=== PATIENT | male | born 1950 | race Caucasian/White ===

== ENCOUNTER → 2017-06-09 | Outpatient (CLI) | payer OTHER, MEDICARE ==
[~2017-06-09] MED LIST: AMLO1TAB84 PO; GLUC500T4 PO; HYDR12.57 PO; OMEP40CA2 PO; SACC1CAP3 PO; VITA100T54 PO; VITATAB56 PO
[2017-06-09 09:13] LABS: BILIRUBIN, URINE NEG (NEG); BLOOD, URINE NEG (NEG); GLUCOSE,URINE NEG (NEG); KETONE, URINE NEG (NEG); MUCUS URINE FEW /lpf (OCC); NITRITE,URINE NEG (NEG); PH, URINE 6.5 (5.0-8.5); URINE COLOR YELLOW (YELLW/STRAW); URINE LEUKOCYTE ESTERASE NEG (NEG)
[2017-06-09 09:15] LABS: AUTOMATED NEUTROPHIL # 5.4 TH/MM3 (1.8-7.7); BASOPHIL % 0.3 % (0.0-2.0); EOSINOPHIL # 0.2 TH/MM3 (0-0.4); EOSINOPHIL % 2.9 % (0.0-4.0); HEMATOCRIT 46.1 % (39.0-51.0); HEMOGLOBIN 15.7 GM/DL (13.0-17.0); LYMPHOCYTE # 1.4 TH/MM3 (1.0-4.8); MEAN CELL VOLUME 87.1 FL (80.0-100.0); MEAN CORPUSCULAR HEMOGLOBIN 29.7 PG (27.0-34.0); MEAN CORPUSCULAR HGB CONC 34.1 % (32.0-36.0); MONO % 7.5 % (0.0-8.0); MONOCYTE # 0.6 TH/MM3 (0-0.9); NEUT % 71.3 % (16.0-70.0); PLATELET COUNT 202 TH/MM3 (150-450); RED CELL DISTRIBUTION WIDTH 14.5 % (11.6-17.2); WHITE BLOOD COUNT 7.6 TH/MM3 (4.0-11.0)
[2017-06-09 09:25] LABS: INTERNATIONAL NORMALIZED RATIO 1.1 RATIO; PROTHROMBIN TIME - PATIENT 10.7 SEC (9.8-11.6)
[2017-06-09 09:42] LABS: CALCIUM 9.1 MG/DL (8.5-10.1); CHLORIDE 104 MEQ/L (98-107); SODIUM (NA) 141 MEQ/L (136-145)
[2017-06-09 09:44] LABS: ALBUMIN 3.9 GM/DL (3.4-5.0); AST (GOT) 24 U/L (15-37); BICARBONATE 30.3 MEQ/L (21.0-32.0); BLOOD UREA NITROGEN 13 MG/DL (7-18); CREATININE 1.12 MG/DL (0.60-1.30); GLOMERULAR FILTRATION RATE 66 ML/MIN (>89); GLUCOSE,FASTING 101 MG/DL (74-99)
[2017-06-09 09:49] LABS: ALKALINE PHOSPHATASE 95 U/L (45-117); ALT (GPT) 33 U/L (12-78); TOTAL BILIRUBIN ADULT 1.4 MG/DL (0.2-1.0); TOTAL PROTEIN 7.5 GM/DL (6.4-8.2)
== END ==
LOC: CPRE 08:08
PROVIDERS: ATTEND Surgery
DX: Z01.810 Encounter for preprocedural cardiovascular examination (principal); Z01.812 Encounter for preprocedural laboratory examination; Z01.818 Encounter for other preprocedural examination; M79.609 Pain in unspecified limb
CPT/HCPCS: 36415; 80053; 81001; 85025; 85610; 85730

== ENCOUNTER 2017-06-16 10:50 | Observation (INO) | payer OTHER, MEDICARE ==
--- NOTE | 2017-06-10 14:11 | MH ---
cc: Steffi Stephenson MD DATE OF ADMISSION: 06/16/2017 DATE OF ADMISSION FOR SURGERY: 06/16/2017 ADMITTING DIAGNOSIS: Osteoarthritic degeneration of the right knee, now being admitted for right total knee arthroplasty. HISTORY OF PRESENT ILLNESS: This pleasant 66-year-old male is being admitted today for right total knee arthroplasty due to severe painful osteoarthritic degeneration of the right knee. PAST MEDICAL HISTORY: The patient has a history of arthritis and hypertension. MEDICATIONS: Currently takes amlodipine, atorvastatin, hydrochlorothiazide, Nexium and Vyvanse. PAST SURGICAL HISTORY: Includes surgical correction of a patellar fracture, right knee and arthroscopy, right knee. REVIEW OF SYSTEMS: Noncontributory. FAMILY HISTORY: Noncontributory. SOCIAL HISTORY: The patient does not smoke, drinks alcohol occasionally. ALLERGIES: HE IS ALLERGIC TO CODEINE, BUT NOT HYDROCODONE OR OXYCODONE. PHYSICAL EXAMINATION: GENERAL: We find a 66-year-old male, well-developed, well-nourished, oriented x 3, complaining of pain in his right knee. VITAL SIGNS: Blood pressure 130/86, pulse 90 and regular, respirations 16, temperature 98.2, pulse oximetry 97% on room air. HEENT: Eyes PERRLA, EOMI. Ears, nose, mouth clear. NECK: Supple. LUNGS: Clear. HEART: Regular rate. ABDOMEN: Soft, positive bowel sounds, nontender. EXTREMITIES: Reveal right knee to be tender with crepitance on range of motion. He lacks 5 degrees short of full extension. He has good flexion. Neurovascularly intact. IMPRESSION: Osteoarthritic degeneration of the right knee. PLAN: Admission for right total knee arthroplasty today. The patient understands the procedure well and risks involved and was given a prescription for postoperative pain and anticoagulation control in the office and plans on going home after the surgical stay in the hospital. MD SAQIB Ewing/CHON , 01:22 PM , 02:09 PM
[~2017-06-16] VITALS: Ht 180.3 cm; Wt 94.0 kg
[~2017-06-16 10:50] MED LIST changes: -SACC1CAP3 PO
[2017-06-16] MEDS ORDERED: CHLORHEXIDINE GLUCONATE 2 % 1 PACK (2 CLOTHS) TOPICAL PRN (12:00)
[2017-06-16] MEDS ORDERED: METOPROLOL TARTRATE 25 MG TAB PO PRN (12:00)
[2017-06-16] MEDS ORDERED: PROPOFOL 200 MG/20 ML AMP IV ONE (12:00)
[2017-06-16] MEDS ORDERED: LACTATED RINGER'S 1000 ML IV PRN (12:00)
[2017-06-16] MEDS ORDERED: POVIDONE IODINE 5% (ANTISEPSIS KIT) 4 APPLICATIONS EACH NARE PRN (12:00)
[2017-06-16] MEDS ORDERED: SODIUM CHLORID 0.9% 500 ML IV PRN (12:00)
[2017-06-16] MEDS ORDERED: INSULIN HUMAN REGULAR 1,000 UNITS/10 ML VIAL SQ PRN (12:00)
[2017-06-16] MEDS ORDERED: NALOXONE HCL 0.4 MG/ML AMP IV PUSH PRN (12:30)
[2017-06-16] MEDS ORDERED: Post-op Orders (for Pharmacy) XX ONE (12:30)
[2017-06-16] MEDS ORDERED: diphenhydrAMINE HCL 50 MG/ML VIAL IV PUSH PRN (12:30)
[2017-06-16] MEDS ORDERED: ONDANSETRON HCL 4 MG/2 ML VIAL IVP PRN (12:30)
[2017-06-16] MEDS ORDERED: ACETAMINOPHEN 325 MG TAB PO PRN (12:30)
[2017-06-16] MEDS ORDERED: TRANEXAMIC ACID INJ 0 MG in SODIUM CHLORIDE 0.9% INJ 100 ML IV SCH (12:30)
[2017-06-16] MEDS ORDERED: TEMAZEPAM 15 MG CAP PO PRN (12:30)
[2017-06-16] MEDS ORDERED: MORPHINE SULFATE 4 MG/ML INJ IV PUSH PRN (12:30)
--- NOTE | 2017-06-16 12:35 | HHI.FF ---
Face to Face Verification Diagnosis: (1) Status post total right knee replacement Physical Therapy Gait training Knee: Total knee, Protocol: Right, Gait training, Full weight bearing Canvas Knee Splint: When in bed & 2 pillows btw thighs Nursing RN: 3 days/week x 2 weeks I have seen patient David Parnell on 06/16/17. My clinical findings support the need for the requested home health care services because: Limited ability to care for self High risk of falls I certify that my clinical findings support that this patient is homebound because: Unsteady gait/balance Steffi Stephenson MD Jun 16, 2017 12:35
[2017-06-16] MEDS ORDERED: CPMMACHINE (12:37)
[2017-06-16] MEDS ORDERED: ADJUSTABLE COMM1 MIS (12:37)
[2017-06-16] MEDS ORDERED: WALKER WHEELS/F1 MIS (12:37)
[2017-06-16] MEDS ORDERED: BUPIVACAINE LIPOSOME PF 1.3% 20 ML VIAL ONE (12:49)
[2017-06-16] MEDS ORDERED: MIDAZOLAM HCL 2 MG/2 ML VIAL ONE ×2 (12:50→16:19)
[2017-06-16] MEDS ORDERED: SACC1CAP3 PO (12:52)
[2017-06-16] MEDS ORDERED: ceFAZolin 2 GM PREMIX 0 ML ONE (13:03)
[2017-06-16] MEDS ORDERED: ceFAZolin INJ 1,000 MG VIAL ONE (13:04)
[2017-06-16] MEDS ORDERED: VANCOMYCIN 1 GM/200 ML INJ 200 ML IV ONE (13:12)
[2017-06-16] MEDS ORDERED: ceFAZolin 2 GM PREMIX 50 ML ONE (13:12)
[2017-06-16] MEDS ORDERED: DEXAMETHASONE SOD PHOS 20 MG/5 ML VIAL ONE (13:12)
[2017-06-16 13:15] VITALS: PULSE 79
[2017-06-16] MEDS ORDERED: EPINEPHrine HCL PF/SF (1:1000) 1 MG/ML AMP I-OCULAR ONE (13:24)
[2017-06-16] MEDS ORDERED: BUPIVACAINE PF 0.75% DEX-WATER INJ 2 ML AMP ONE (13:25)
[2017-06-16] MEDS ORDERED: VANCOMYCIN 1 GM/200 ML PREMIX IV SCH (13:30)
[2017-06-16] MEDS ORDERED: CHLORHEXIDINE GLUCONATE 4% SOLN 120 ML BTL TOPICAL SCH (13:30)
[2017-06-16] MEDS ORDERED: ceFAZolin 2 GM PREMIX 50 ML IV SCH (13:30)
[2017-06-16] MEDS ORDERED: TRANEXAMIC ACID INJ 940 MG in SODIUM CHLORIDE 0.9% INJ 100 ML IV SCH ×2 (13:30→16:30)
[2017-06-16] MEDS ORDERED: BUPIVACAINE 0.25% P-ARTICULR SCH (13:45)
[2017-06-16] MEDS ORDERED: NS P-ARTICULR SCH (13:45)
[2017-06-16] MEDS ORDERED: BUPIVACAINE LIPOSO 1.3% P-ARTICULR SCH (13:45)
[2017-06-16] MEDS ORDERED: DEXAMETHASONE SOD PHOS 20 MG/5 ML VIAL IV PUSH SCH (14:00)
[2017-06-16] MEDS ORDERED: TOBRAMYCIN 1200 MG VIAL (for ortho/sterile core) OTHER ONE (15:07)
[2017-06-16] MEDS ORDERED: PROPOFOL 200 MG/20 ML AMP ONE (15:32)
--- NOTE | 2017-06-16 16:13 | HHI.PR ---
Immediate Post Op Note Procedure Date: Jun 16, 2017 Pre Op Diagnosis: Osteoarthritic degeneration of the right knee Post Op Diagnosis: Osteoarthritic degeneration of the right knee Surgeon: Mayito Stephenson MD Direct Service Professional(s): Zenobia ROTHMAN Procedure: Right Total Knee Arthroplasty Complications: none Specimen(s) removed: none Estimated blood loss: 100 cc Anesthesia: Spinal Drains: None IVF Urinary Output (mLs): 0 (no German) Tourniquet time (min at mmHg) 51 mins at 300mmHg Patient to: PACU Patient Condition: Good Implant/Devices: SEE IMPLANT LOG (if applicable) Date/Time of Procedure: SEE SURGICAL CARE RECORD Zenobia Alonzo Jun 16, 2017 16:12
[2017-06-16] MEDS ORDERED: *MEPERIDINE 25 MG INJ VIAL PERIprocedural Use ONLY ONE (16:18)
[2017-06-16] MEDS: LACTATED RINGER'S 1000 ML INJ 1,000 ML IV SCH (16:32)
[2017-06-16] MEDS ORDERED: DO NOT ADM ANY ANTICOAGULANT DRUGS PRN (16:45)
[2017-06-16] MEDS ORDERED: *morphine SULFATE 4 MG/ML PERIprocedure ONLY ONE (16:49)
--- NOTE | 2017-06-16 16:51 | MP ---
cc: Steffi Stephenson MD DATE OF OPERATION: 06/16/2017 PREOPERATIVE DIAGNOSIS: Osteoarthritic degeneration, right knee. POSTOPERATIVE DIAGNOSIS: Osteoarthritic degeneration, right knee. PROCEDURE PERFORMED: Right total knee arthroplasty using Consensus components, size 4 femur, size 3 tibia, size 2 x 7.5 mm patella with size 14 Vital-Lite congruent insert and 2 batches of antibiotic-impregnated DePuy cement with tobramycin. ANESTHESIA: Spinal. SURGEON: Steffi Stephenson MD WEB MARKETING MANAGER: LORNA Jarrell PROCEDURE: After successful induction of anesthesia, the patient is placed on the operating room table in the supine position. The knee is prepped and draped in the usual manner. A tourniquet is inflated at the upper thigh and set to 300 mmHg pressure after exsanguination of the lower extremity. A longitudinal incision is made extending from 3 inches proximal to the superior pole of the patella, across the patella in longitudinal fashion, and down past the insertion of the tibial tubercle into the proximal tibia. The incision is carried down through subcutaneous tissue along the medial aspect of the patella and retinaculum, down through the capsule to expose the knee joint. The patella and patellar tendon are freed up enough to allow the patella to be inverted and retracted off the lateral side of the knee joint. The knee joint is left exposed. Small osteophytes are removed. All soft tissue is removed to allow proper position of the femoral and tibial cutting jig guide. The first femoral jig is then inserted along the distal end of the femur after first measuring to decide whether this is a small, medium, or large component. The notch is then drilled and the tibial cutting guide inserted into the femoral cutting guide, along with the ankle brace to allow for proper measurement of the tibial cutting surface that needed to be resected. Pins are inserted into the tibial cutting jig and femoral cutting jig to hold them in place. An oscillating saw is then used to resect the surface of the tibia. The surface of the tibia is then completely removed using sharp and blunt dissection. The anterior and posterior cuts of the femur are then made as well using an oscillating saw through the cutting guide. All guides are then removed and the varus/valgus angulation cutting guide applied to the femur for proper measurement of the proper amount of valgus. The anterior cutting guide for the femur is then inserted at the anterior femoral cuts made. Next, the first block trial is inserted into the femur to allow for proper condyle drill holes to be made which are then made followed by removal of the bone between the condyles using an oscillating saw as well as the bone removed at the most posterior surface of the condyle. After this, this guide is removed and the chamfer cuts made using the chamfer cutting guide from both anterior and posterior. Next, the femoral trial is then inserted, the tibial surface reflected anterior to expose the tibial surface and a tibial stem guide is inserted after first measuring for a standard, standard plus, large, or large plus surface to be used. After the stem is impacted the trial tibial surface is applied followed by the trial meniscal components. After full range of motion is found with the appropriate length meniscal components varying the patella is prepared by resecting the posterior aspect of the patella using an oscillating saw, inserting a trial. The trial is then removed and the cruciate cutting guide applied using the bur to cut the cruciate cuts. After cruciate cuts are made all trials are removed. The wound is irrigated copiously with antibiotic solution and Water Pik and the actual components inserted into place using the aforementioned components, Consensus components, size 4 femur, size 3 tibia, size 2 x 7.5 mm patella with size 14 Vital-Lite congruent insert and 2 batches of antibiotic-impregnated [employer] cement with tobramycin. After the cement has hardened and the components are found to have full range of motion with no instability, the tourniquet is deflated, total tourniquet time being 51 minutes at 300 mmHg pressure. The wound again is irrigated copiously with antibiotic solution, meticulous hemostasis achieved, the wound irrigated copiously with antibiotic solution and 60 cc of a mixture of Exparel, normal saline and 0.25% Marcaine plain inserted around the knee joint for extra pain control. The deep fascia was approximated with running #2 Quill, the subcutaneous tissue approximated using interrupted and running 2-0 and 4-0 Monocryl sutures and sterile dressing with Prineo dressing and knee immobilizer. No drain utilized. ESTIMATED BLOOD LOSS: 100 mL. COUNTS: Sponge and suture counts were correct. The patient tolerated the procedure well and left the Operating Room in satisfactory condition. NOTE: LORNA Jarrell, was present during the entire procedure to include patient positioning and the procedure. The medical necessity of a nurse practitioner, it administrative assistant was indicated in this case due to the surgical complexity of the case itself and during this surgical case the rn neurosurgical was working the back table while my surgical elastic knitter/WATER POLLUTION SPECIALIST was directly assisting me. J. MD SAQIB Morgan/CARLEE , 04:00 PM , 04:51 PM
[2017-06-16 17:15] VITALS: BP 139/87; PULSE 81; RESP 18; TEMP 97.3; O2SAT 96
--- NOTE | 2017-06-16 17:16 | RADRPT ---
EXAM DATE/TIME: 06/16/2017 16:24 [facility] COMPARISON: No previous studies available for comparison. INDICATIONS : Post op. MEDICAL HISTORY : None. SURGICAL HISTORY : None. ENCOUNTER: Initial ACUITY: 1 day PAIN SCORE: 0/10 LOCATION: Right Knee. FINDINGS: 2 views performed status post total knee arthroplasty. The hardware is intact. The osseous structur es are normal alignment. Diffuse superficial and deep soft tissue gas. No radiopaque foreign bodies . CONCLUSION: Expected postsurgical changes status post total knee arthroplasty. Rhett Dalal MD on June 16, 2017 at 17:14 Board Certified Radiologist. This report was verified electronically.
[2017-06-16] MEDS: ACETAMINOPHEN/HYDROcodone 325 MG/7.5 MG TAB PO PRN (19:02)
[2017-06-16 19:58] VITALS: BP 139/75; PULSE 100; PULSE 95; RESP 18; TEMP 97.8; O2SAT 96
[2017-06-16] MEDS: ATORVASTATIN 40 MG TAB PO SCH (20:35)
[2017-06-16] MEDS ORDERED: NON-FORMULARY DRUG (Glucosamine-Chondroitin 1 TAB) PO SCH (21:00)
[2017-06-16] MEDS ORDERED: NON-FORMULARY DRUG (Amlodipine-Atorvastatin 1 TAB) PO SCH (21:00)
[2017-06-16 23:16] VITALS: BP 132/62; PULSE 88; RESP 18; TEMP 98; O2SAT 94
[2017-06-17] MEDS: ACETAMINOPHEN/HYDROcodone 325 MG/7.5 MG TAB PO PRN ×5 (00:10→21:37)
[2017-06-17] MEDS: LACTATED RINGER'S 1000 ML INJ 1,000 ML IV SCH ×2 (01:27→14:00)
[2017-06-17 03:52] VITALS: BP 133/82; PULSE 93; RESP 18; TEMP 98; O2SAT 94
[2017-06-17 04:14] LABS: HEMOGLOBIN 14.4 GM/DL (13.0-17.0)
[2017-06-17 08:00] VITALS: BP 131/78; PULSE 89; RESP 18; TEMP 98; O2SAT 92
[2017-06-17] MEDS: CHOLECALCIFEROL (VIT D3) 400 UNIT TAB PO SCH (09:00)
[2017-06-17] MEDS: THIAMINE HCL 100 MG TAB PO SCH (09:00)
[2017-06-17] MEDS: PANTOPRAZOLE SOD 40 MG DELAYED RELEASE TAB PO SCH (09:01)
[2017-06-17] MEDS: HYDROCHLOROTHIAZIDE 12.5 MG CAP PO SCH (09:01)
[2017-06-17 12:00] VITALS: BP 143/85; PULSE 95; RESP 18; TEMP 98.3; O2SAT 96
--- NOTE | 2017-06-17 13:46 | PD.ORT.PN ---
Subjective Subjective Remarks Pt comfortable today with no complaints. Objective Vitals Vital Signs Date Time Temp Pulse Resp B/P (MAP) Pulse Ox O2 Delivery O2 Flow Rate FiO2 06/17/17 12:00 98.3 95 18 143/85 (104) 96 06/17/17 10:00 20 06/17/17 08:00 Room Air 06/17/17 08:00 98.0 89 18 131/78 (95) 92 06/17/17 05:28 18 06/17/17 03:52 98.0 93 18 133/82 (99) 94 06/16/17 23:16 98.0 88 18 132/62 (85) 94 06/16/17 22:57 Room Air 06/16/17 19:58 97.8 95 18 139/75 (96) 96 06/16/17 17:15 97.3 81 18 139/87 (104) 96 06/16/17 17:00 97.4 83 15 118/78 (91) 95 Nasal Cannula 2 06/16/17 16:45 80 17 123/77 (92) 97 Nasal Cannula 2 06/16/17 16:30 73 18 125/82 (96) 96 Nasal Cannula 2 06/16/17 16:15 74 20 118/75 (89) 96 Nasal Cannula 2 06/16/17 16:10 97.1 76 18 118/81 (93) 95 Nasal Cannula 4 I/O 06/16/17 06/16/17 06/16/17 06/17/17 06/17/17 06/17/17 07:00 15:00 23:00 07:00 15:00 23:00 Intake Total 1269 ml 820 ml 100 ml Output Total 100 ml 450 ml Balance 1169 ml 370 ml 100 ml Intake Oral 10 ml 720 ml IV Total 259 ml 100 ml 100 ml Other 1000 ml Output Urine Total 450 ml Estimated Blood Loss 100 ml # Voids 1 # Bowel Movements 0 Result Diagram: 06/17/17 0335 Imaging Last 48 hours Impressions Knee X-Ray 06/16/17 1230 Signed Impressions: Service Date/Time: Friday, June 16, 2017 16:24 - CONCLUSION: Expected postsurgical changes status post total knee arthroplasty. Rhett Dalal MD Objective Remarks Sitting up in chair. NV intact with no calf tenderness. Assessment & Plan Ortho Post Op Day #: 1 Problem List: Assessment and Plan PT, OOB , home tomorrow. Steffi Stephenson MD June 17, 2017 13:46
[2017-06-17 16:00] VITALS: BP 138/83; PULSE 90; RESP 18; TEMP 97.9; O2SAT 98
[2017-06-17] MEDS: APIXABAN 2.5 MG TABLET PO SCH (16:14)
[2017-06-17] MEDS: ATORVASTATIN 40 MG TAB PO SCH (21:38)
[2017-06-17] MEDS: DOCUSATE SODIUM 100 MG CAP PO SCH (21:38)
[2017-06-17] MEDS: MULTIVITAMINS/MINERALS THERAPEUTIC TAB PO SCH (21:38)
[2017-06-17 21:42] VITALS: BP 144/78; PULSE 87; RESP 18; TEMP 98.1; O2SAT 95
[2017-06-17 23:41] VITALS: BP 133/79; PULSE 84; RESP 18; TEMP 97.8; O2SAT 95
[2017-06-18] MEDS: LACTATED RINGER'S 1000 ML INJ 1,000 ML IV SCH (02:30)
[2017-06-18] MEDS: ACETAMINOPHEN/HYDROcodone 325 MG/7.5 MG TAB PO PRN ×2 (02:48→10:05)
[2017-06-18] MEDS: APIXABAN 2.5 MG TABLET PO SCH (02:48)
[2017-06-18 04:08] LABS: HEMATOCRIT 37.3 % (39.0-51.0); HEMOGLOBIN 12.9 GM/DL (13.0-17.0)
[2017-06-18] MEDS: THIAMINE HCL 100 MG TAB PO SCH (08:04)
[2017-06-18] MEDS: DOCUSATE SODIUM 100 MG CAP PO SCH (08:05)
[2017-06-18] MEDS: MULTIVITAMINS/MINERALS THERAPEUTIC TAB PO SCH (08:05)
[2017-06-18] MEDS: HYDROCHLOROTHIAZIDE 12.5 MG CAP PO SCH (08:05)
[2017-06-18] MEDS: PANTOPRAZOLE SOD 40 MG DELAYED RELEASE TAB PO SCH (08:05)
[2017-06-18] MEDS: CHOLECALCIFEROL (VIT D3) 400 UNIT TAB PO SCH (08:05)
--- NOTE | 2017-06-18 08:05 | PD.ORT.PN ---
Subjective Subjective Remarks Pt comfortable today with no complaints. Objective Vitals Vital Signs Date Time Temp Pulse Resp B/P (MAP) Pulse Ox O2 Delivery O2 Flow Rate FiO2 06/18/17 03:26 18 06/17/17 23:41 97.8 84 18 133/79 (97) 95 06/17/17 23:38 Room Air 06/17/17 22:21 18 06/17/17 21:42 98.1 87 18 144/78 (100) 95 06/17/17 16:00 97.9 90 18 138/83 (101) 98 06/17/17 12:00 98.3 95 18 143/85 (104) 96 I/O 06/17/17 06/17/17 06/17/17 06/18/17 06/18/17 06/18/17 07:00 15:00 23:00 07:00 15:00 23:00 Intake Total 820 ml 580 ml 720 ml Output Total 450 ml Balance 370 ml 580 ml 720 ml Intake Oral 720 ml 480 ml 720 ml IV Total 100 ml 100 ml Output Urine Total 450 ml # Voids 1 3 3 # Bowel Movements 0 2 Result Diagram: 06/18/17 0344 Imaging Last 48 hours Impressions Knee X-Ray 06/16/17 1230 Signed Impressions: Service Date/Time: Friday, June 16, 2017 16:24 - CONCLUSION: Expected postsurgical changes status post total knee arthroplasty. Rhett Dalal MD Objective Remarks In bed at moment. NV intact with no calf tenderness. Assessment & Plan Ortho Post Op Day #: 2 Problem List: Assessment and Plan PT, OOB , home today. Steffi Stephenson MD June 18, 2017 08:05
[2017-06-18 08:08] VITALS: BP 123/75; PULSE 91; RESP 18; TEMP 97.2; O2SAT 97
--- NOTE | 2017-06-18 08:08 | HHI.DS ---
Discharge Summary Admission Date Jun 16, 2017 at 10:50 Discharge Date: June 18, 2017 Admitting Diagnosis Osteoarthritis right knee Diagnosis: (1) Status post total right knee replacement Diagnosis: Principal ICD Codes: Z96.651 - Presence of right artificial knee joint Brief History This is a 66 year old male patient CBC/BMP: 06/18/17 0344 Significant Findings Laboratory Tests Test 06/17/17 03:35 06/18/17 03:44 Hemoglobin 12.9 GM/DL (13.0-17.0) Hematocrit 37.3 % (39.0-51.0) PE at Discharge In bed at moment. NV intact with no calf tenderness. Hospital Course Patient underwent a right total knee arthroplasty on day of admission. He received a course of prophylactic IV antibiotics and within 23 hours started on anticoagulation therapy. He continued to improve with physical therapy. He remained afebrile vital signs stable tolerating food and fluids well and p.o. pain meds. He was discharged on postoperative day #2 to home in good condition with instructions for home health care and appointment in the office the following week for recheck. Pt Condition on Discharge: Good Discharge Disposition: Disch w/ Home Health Serv Discharge Instructions Diet Instructions: As Tolerated, No Restrictions Activities You Can Perform: Full Weight Bearing, Shower Only-No Bath Activities to Avoid: Bathing, Driving Steffi Stephenson MD June 18, 2017 08:08
[2017-06-18] MEDS ORDERED: BACITRACIN OINT 0.9 GM PKT TOP PRN (10:15)
[2017-06-18 11:05] VITALS: RESP 18
== END 2017-06-18 11:52 | disposition home or self-care (01) ==
LOC: INTOOBSV 10:50 → HSDI 10:50 → EDUNIT# 13:30 → N06A 17:37
PROVIDERS: ADMIT Surgery; ATTEND Surgery
DX: M17.11 Unilateral primary osteoarthritis, right knee (principal); I10 Essential (primary) hypertension
CPT/HCPCS: 01400; 27447; 73560; 85014; 85018; 86850; 86900; 86901; 94150; 96365; 97116; 97150; 97162; 97166; C1776; C9290; G0378; G8987; G8988; J0171; J0690; J2175; J2250; J2270; J3010; J3370; J7120; L1830; J1100